=== PATIENT | female | born 1940 | race Caucasian/White ===

== ENCOUNTER → 2020-02-11 | Outpatient (CLI) | payer MEDICARE ==
[~2020-02-11] MED LIST: ATOR20TA66 PO; CALC-1215 PO; CHOL10002 PO; CLOP75TA33 PO; COUMADIN; ESCI20TA PO; FLAX100031 PO; HYDR200T84 PO; LIDOcaine 2% 5ml jelly ONE; METO-395 PO; MULT-920 PO; OMEG1CAP46 PO; OMEP20CA15 PO; PRED5TAB49 PO; PREG100C PO
== END | disposition home or self-care (01) ==
LOC: WOUND CARE 09:30 → EDSTATUS 10:00
PROVIDERS: ATTEND Nurse Practitioner
DX: T81.89XA Other complications of procedures, not elsewhere classified, initial encounter (principal); L98.492 Non-pressure chronic ulcer of skin of other sites with fat layer exposed; I10 Essential (primary) hypertension; M19.90 Unspecified osteoarthritis, unspecified site; Z86.711 Personal history of pulmonary embolism; Z86.718 Personal history of other venous thrombosis and embolism; Z98.49 Cataract extraction status, unspecified eye; Z96.698 Presence of other orthopedic joint implants; Z90.710 Acquired absence of both cervix and uterus; Y83.8 Other surgical procedures as the cause of abnormal reaction of the patient, or of later complication, without mention of misadventure at the time of the procedure; Y92.234 Operating room of hospital as the place of occurrence of the external cause
CPT/HCPCS: 11042

== ENCOUNTER 2020-02-16 13:06 | Outpatient (CLI) | payer MEDICARE ==
[~2020-02-16 13:06] MED LIST changes: -LIDOcaine 2% 5ml jelly ONE
[2020-02-16] MEDS ORDERED: LIDOcaine 2% 5ml jelly ONE (13:30)
== END 2020-02-16 23:59 | disposition home or self-care (01) ==
LOC: WOUND CARE 13:06
PROVIDERS: ATTEND Nurse Practitioner
DX: T81.89XD Other complications of procedures, not elsewhere classified, subsequent encounter (principal); L98.492 Non-pressure chronic ulcer of skin of other sites with fat layer exposed; I10 Essential (primary) hypertension; M19.90 Unspecified osteoarthritis, unspecified site; Z90.710 Acquired absence of both cervix and uterus; Z98.49 Cataract extraction status, unspecified eye; Z86.718 Personal history of other venous thrombosis and embolism; Z86.711 Personal history of pulmonary embolism; Z95.5 Presence of coronary angioplasty implant and graft; Z90.49 Acquired absence of other specified parts of digestive tract; Y83.8 Other surgical procedures as the cause of abnormal reaction of the patient, or of later complication, without mention of misadventure at the time of the procedure
CPT/HCPCS: 11042

== ENCOUNTER 2020-02-23 10:42 | Outpatient (CLI) | payer MEDICARE ==
[2020-02-23] MEDS ORDERED: LIDOcaine 2% 5ml jelly ONE (10:59)
== END 2020-02-23 23:59 | disposition home or self-care (01) ==
LOC: WOUND CARE 10:42
PROVIDERS: ATTEND Nurse Practitioner
DX: T81.89XD Other complications of procedures, not elsewhere classified, subsequent encounter (principal); L98.492 Non-pressure chronic ulcer of skin of other sites with fat layer exposed; I10 Essential (primary) hypertension; M19.90 Unspecified osteoarthritis, unspecified site; Z90.710 Acquired absence of both cervix and uterus; Z98.49 Cataract extraction status, unspecified eye; Z86.718 Personal history of other venous thrombosis and embolism; Z86.711 Personal history of pulmonary embolism; Z90.49 Acquired absence of other specified parts of digestive tract; Z95.5 Presence of coronary angioplasty implant and graft; Y83.8 Other surgical procedures as the cause of abnormal reaction of the patient, or of later complication, without mention of misadventure at the time of the procedure
CPT/HCPCS: G0463